=== PATIENT | female | born 1955 | race Caucasian/White ===

== ENCOUNTER 2021-09-04 02:59 | Emergency (ER) | payer BC ==
[~2021-09-04] VITALS: Ht 152.4 cm; Wt 56.7 kg
[2021-09-04 03:59] VITALS: BP_SYST 162
--- NOTE | 2021-09-04 04:15 | NUR ---
pt arrived to er for complaints of "allergic reaction" like feeling. pt states she feels hot and like she is having an allergic reaction even though she hasnt taken any medications or eaten anything. 0/10 pain. a&ox4
--- NOTE | 2021-09-04 04:20 | NUR ---
ER at bedside examining patient.
[2021-09-04 04:59] LABS: BASOPHILS % (AUTO) 0.5 % (0.0-2.0); EOSINOPHILS # (AUTO) 0.1 K/uL (0.0-0.4); EOSINOPHILS % (AUTO) 2.6 % (0.0-4.0); HEMATOCRIT 38.1 % (36-48); HEMOGLOBIN 12.8 g/dL (12.0-16.0); LYMPHOCYTES # (AUTO) 1.2 K/uL (1.0-5.5); LYMPHOCYTES % (AUTO) 33.2 % (20.5-51.5); MEAN CORPUSCULAR HEMOGLOBIN 31 pg (27-31); MEAN CORPUSCULAR HGB CONC 34 % (32-36); MEAN CORPUSCULAR VOLUME 93 fL (79.0-98.0); MONOCYTES # (AUTO) 0.3 K/uL (0.0-1.0); MONOCYTES % (AUTO) 7.8 % (1.7-9.3); NEUTROPHILS # (AUTO) 2.1 K/uL (1.8-7.7); NEUTROPHILS % (AUTO) 55.9 % (40.0-70.0); PLATELET COUNT (AUTO) 201 K/uL (130-430); RED BLOOD CELL COUNT(AUTO) 4.09 MIL/uL (4.2-6.2); RED CELL DISTRIBUTION WIDTH 13.7 % (9.0-15.0); WHITE BLOOD COUNT (AUTO) 3.7 K/uL (4.8-10.8)
[2021-09-04 05:08] LABS: ANION GAP 6 (5-15); CALCIUM 8.8 mg/dL (8.4-11.0); CHLORIDE 107 mmol/L (98-107); CREATININE 0.51 mg/dL (0.55-1.30); GLUCOSE 100 mg/dL (70-99); POTASSIUM 3.7 mmol/L (3.5-5.1); SODIUM SERUM 141 mmol/L (136-145); UREA NITROGEN, BLOOD 12 mg/dL (8-21)
[2021-09-04 05:09] LABS: GFR AFRICAN AMERICAN 156 mL/min (>90)
[2021-09-04 05:19] LABS: ALANINE AMINOTRANSFERASE 24 U/L (12-78); ALBUMIN 3.6 g/dL (3.4-4.8); ASPARTATE AMINOTRANSFERASE 22 U/L (10-37); TOTAL BILIRUBIN 0.2 mg/dL (0.0-1.0)
[2021-09-04 06:35] VITALS: BP_SYST 113
--- NOTE | 2021-09-04 06:36 | NUR ---
Patient given written and verbal discharge instructions and verbalizes understanding. ER MD discussed with patient the results and treatment provided. Patient in stable condition. ID arm band removed. Patient educated on pain management and to follow up with PMD. Pain Scale 0/10. Opportunity for questions provided and answered. Medication side effect fact sheet provided.
== END 2021-09-04 06:36 | disposition home or self-care (01) ==
LOC: SED 02:59
DX: F41.9 Anxiety disorder, unspecified (principal); I49.9 Cardiac arrhythmia, unspecified; Z88.0 Allergy status to penicillin; Z88.1 Allergy status to other antibiotic agents; Z88.8 Allergy status to other drugs, medicaments and biological substances
CPT/HCPCS: 36415; 80053; 84484; 85025; 93005; 99284

== ENCOUNTER 2021-11-30 13:28 | Emergency (ER) | payer OTHER, MEDICAID, SELFPAY ==
[~2021-11-30] VITALS: Ht 157.5 cm; Wt 52.6 kg
--- NOTE | 2021-11-30 13:40 | NUR ---
Pt brought by self, A&Ox4, pt presents to ER with bodyaches, runny nose, congestion, VSS, respirations even and unlabored, cap refill <3.
[2021-11-30 14:12] VITALS: BP_SYST 155
--- NOTE | 2021-11-30 14:32 | NUR ---
Dr Simms evaluating patients in the triage room
--- NOTE | 2021-11-30 15:20 | NUR ---
Pt A&Ox4. VSS, respirations even and unlabored, cap refill <3.
[2021-11-30] MEDS ORDERED: [UNRECOGNIZED DRUG - OTHER] PO (16:48)
[2021-11-30] MEDS ORDERED: RITO100T PO (16:50)
[2021-11-30] MEDS ORDERED: DIPH25TA62 PO (16:51)
[2021-11-30 17:17] VITALS: BP_SYST 155
--- NOTE | 2021-11-30 17:18 | NUR ---
Patient given written and verbal discharge instructions and verbalizes understanding. ER MD discussed with patient the results and treatment provided. Patient in stable condition. ID arm band removed. Rx of Norvir/ benadryl given. Patient educated on pain management and to follow up with PMD. Pain Scale 0/10. Opportunity for questions provided and answered. Medication side effect fact sheet provided.
== END 2021-11-30 17:18 | disposition home or self-care (01) ==
LOC: SED 13:28
DX: U07.1 COVID-19 (principal); Z88.0 Allergy status to penicillin; Z88.1 Allergy status to other antibiotic agents; Z79.899 Other long term (current) drug therapy
CPT/HCPCS: 36415; 99283

== ENCOUNTER 2021-12-01 22:34 | Emergency (ER) | payer OTHER, MEDICAID, SELFPAY ==
[~2021-12-01] VITALS: Ht 157.5 cm; Wt 52.6 kg
[~2021-12-01 22:34] MED LIST: DIPH25TA62 PO; RITO100T PO; [UNRECOGNIZED DRUG - OTHER] PO
[2021-12-01 22:45] VITALS: BP_SYST 140
--- NOTE | 2021-12-01 23:40 | NUR ---
VISHNU Juárez in tent examining patient.
[2021-12-02] MEDS ORDERED: DIPHENHYDRAMINE HCL 50 MG CAPSULE PO ONE
[2021-12-02] MEDS ORDERED: KETOROLAC TROMETHAMINE 30 MG VIAL IM ONE
[2021-12-02 01:25] VITALS: BP_SYST 138
--- NOTE | 2021-12-02 01:25 | NUR ---
Patient given written and verbal discharge instructions and verbalizes understanding. ER MD discussed with patient the results and treatment provided. Patient in stable condition. ID arm band removed. No Rx given. Patient educated on pain management and to follow up with PMD. Pain Scale is 0/10. Opportunity for questions provided and answered.
== END 2021-12-02 01:25 | disposition home or self-care (01) ==
LOC: SED 22:34
DX: M79.18 Myalgia, other site (principal); T50.995A Adverse effect of other drugs, medicaments and biological substances, initial encounter
CPT/HCPCS: 96372; 99283; J1885; Q0163